=== PATIENT | male | born 1985 | race Caucasian/White ===

== ENCOUNTER 2020-04-24 10:08 | Emergency (ER) | payer SELFPAY ==
[2020-04-24 11:03] VITALS: BP 145/92; PULSE 78; RESP 17; TEMP 36.6; O2SAT 99; BMI 36.6
--- NOTE | 2020-04-24 11:16 | ED.GENADULT ---
HPI - General Adult General Chief complaint: General Medical Stated complaint: difficulty swallowing Time Seen by Provider: 04/24/20 11:07 Source: patient Mode of arrival: ambulatory Limitations: no limitations History of Present Illness HPI narrative: 34-year-old male previously healthy here with difficulty swallowing for greater than 9 months. The patient tells me that often times when he eats certain foods he feel like they get stuck. Sometimes he has to induce vomiting. Other times he is able to get it to pass with drinking lots of fluids. He tells me typically has difficulty with dry foods like Mcchicken sandwiches and chips. No difficulty with soft foods or liquids. No abdominal pain, nausea, vomiting. Onset (ago): month(s) Radiation: non-radiation Associated symptoms: denies other symptoms Related Data Allergies Allergy/AdvReac Type Severity Reaction Status Date / Time No Known Allergies Allergy Verified 04/24/20 11:06 [No Known Allergies*] Review of Systems Review of Systems: Yes all other systems are reviewed and are negative Constitutional: Constitutional: Reports no additional constitutional complaints, Denies body ache(s), Denies chills, Denies fever(s), Denies headache(s) and Denies weakness Eyes: Eyes: Reports no additional eye complaints and Denies change in vision ENT: Reports system reviewed and no additional complaints, except as documented, Reports dysphagia, Denies dizziness, Denies headache(s), Denies nasal congestion, Denies nasal discharge and Denies neck pain Cardiovascular: Cardiovascular: Reports no additional cardiovascular complaints, Denies chest pain, Denies leg edema and Denies dyspnea Respiratory: Respiratory: Reports no additional respiratory complaints, Denies cough and Denies dyspnea Gastrointestinal: Gastrointestinal: Reports no additional gastrointestinal complaints, Denies abdominal pain, Reports dysphagia, Denies diarrhea, Denies nausea and Denies vomiting Genitourinary: Genitourinary: Denies urinary incontinence Musculoskeletal: Musculoskeletal: Reports no additional musculoskeletal complaints, Denies back pain, Denies arthralgias, Denies joint swelling, Denies neck pain, Denies numbness and Denies tingling Integumentary/Breasts: Skin/Breast: Reports system reviewed and no additional complaints, except as docu and Denies rash Neurologic: Reports system reviewed and no additional complaints, except as documented, Denies Abnormal speech present, Denies dizziness, Denies headache(s), Denies numbness, Denies tingling and Denies weakness [facility] Past Medical History Attestation statement: The following information was validated with the patient. Source: old records reviewed and nursing notes reviewed Social History Social History Advance Directives: No Advance Directives Information Provided: No Physical Exam Vital Signs: Vital Signs: Last Vital Signs Temp 98 F 04/24/20 11:03 Pulse 78 04/24/20 11:03 Resp 17 04/24/20 11:03 BP 145/92 H 04/24/20 11:03 Pulse Ox 99 04/24/20 11:03 Body Mass Index 36.6 Const: General: cooperative, healthy appearing, comfortable and no acute distress Orientation/consciousness: patient oriented x3 Limitations: no limitations HENMT: Other: Tolerating secretions Head: Yes normal to inspection Ears: hearing grossly normal bilaterally General nose exam: Normal external nose present Face and sinus: Yes normal facial exam Mouth: Normal oral and palatal mucosa present Throat: Yes posterior oropharynx normal Eyes: General: appearance normal, both eyes and all related structures Pupils: Equal, round and reactive pupils present Neck: Neck: Yes normal visual inspection Chest: Chest palpation & inspection: normal inspection of the chest Resp: Effort & Inspection: normal respiratory effort Auscultation: clear to auscultation bilaterally Cardio: Rate: regular rate Rhythm: regular rhythm Peripheral pulses: Peripheral pulses 2+ throughout GI: Inspection: Yes normal to inspection Palpation (GI): Soft to palpation and nontender Auscultation: normal bowel sounds Back/Spine/Pelvis: Thoracic/Lumbar Spine: thoracic and lumbar spine normal to inspection Skin: General skin exam: no rashes or lesions noted Neuro: General: patient oriented x3, no focal motor deficits and normal sensation to monofilament Cranial nerves: Yes Equal, round and reactive pupils present Cognition (Neuro): normal cognition Speech: No Abnormal speech present Gait exam (Neuro): Normal gait present Motor exam (neuro): 5/5 motor strength present throughout Extrem: General: Yes normal to inspection Course Course Course Narrative: 34-year-old male here with feeling like food gets stuck for greater than 9 months. Happens with certain solid foods. No other associated symptoms. Exam is benign. Patient is drinking fluids in the room and tolerating his own secretions with no difficulty. No abdominal pain. May be esophageal stricture vs gerd vs anatomic abnormality. Discussed with patient he likely will need outpatient GI appointment and possible endoscopy. We discussed avoiding triggering foods. Reviewed worrisome signs and symptoms of when to return to the emergency department. Comfortable with discharge home. Discharge Plan Discharge Clinical Impression: Swallowing difficulty Qualifiers: Dysphagia type: esophageal phase Qualified Code(s): R13.10 - Dysphagia, unspecified Patient Disposition: Home, Self-Care Instructions: Dysphagia (ED) Additional Instructions: Call the party supply specialist as discussed for an appointment Eat soft foods and avoid trigger foods as discussed Referrals: Elmer Garcia MD [Physician] - 2 days Stand Alone Forms: Work/School Release Interventions: ED Discharge Assessment Last Done: 04/24/20 12:18 Discharge Date/Time: 04/24/20 11:30
== END 2020-04-24 11:30 | disposition home or self-care (01) ==
PROVIDERS: Emergency Provider Emergency Medicine Emergency Medical Services
DX: R13.10 Dysphagia, unspecified (principal)
CPT/HCPCS: 99283

== ENCOUNTER → 2020-05-02 08:06 | Outpatient (BNVA) | payer BC, SELFPAY | PROVIDERS: Visit Provider Physician Assistant | DX: Z76.89 Persons encountering health services in other specified circumstances (principal) ==

== ENCOUNTER 2020-06-28 07:58 | Day surgery (SDC) | payer BC, SELFPAY ==
--- NOTE | 2020-06-27 08:57 | HO.ANESPROP2 ---
Documented by User: Odilia Medrano 06/27/20 08:58 HPI - Anesthesia Eval Consult details Narrative: 34yo M for Upper Endoscopy with Balloon Dilitation PMFSH Active Problems Active Problems: All Active Problems (Updated 05/02/20 @ 08:39 by Nia Knapp PA-C) Overweight (Acute) Dysphagia (Acute) Past Medical History Medical History Dysphagia Overweight Family History Family History Father No problems noted. Social History Social History Household Members: Family Alcohol intake: never Smoking Status: Never smoker Use of substances other than those prescribed or required for medical reasons: No Advance Directives: No Advance Directives Information Provided: No Current occupational status: employed Current occupation: IT Meds Allergies Allergy/AdvReac Type Severity Reaction Status Date / Time No Known Allergies Allergy Verified 06/28/20 08:12 [No Known Allergies*] Home Medications Medication Instructions Recorded Confirmed Last Taken Type famotidine 20 mg tablet 20 mg PO BEDTIME 05/02/20 06/22/20 Unknown History omega-3 fatty acids 1,000 mg 1,000 mg PO DAILY 05/02/20 06/22/20 Unknown History capsule Exam Exam Date and Time: June 27, [id number] Assessment and Plan Assessment Anesthesia Assessment: Chart Reviewed Documented by User: Wendy Brown 06/28/20 08:35 PMFSH Past Medical History Medical History Dysphagia Overweight Family History Family History Father No problems noted. Social History Social History Household Members: Family Alcohol intake: never Smoking Status: Never smoker Use of substances other than those prescribed or required for medical reasons: No Advance Directives: No Advance Directives Information Provided: No Current occupational status: employed Current occupation: IT Meds Allergies Allergy/AdvReac Type Severity Reaction Status Date / Time No Known Allergies Allergy Verified 06/28/20 08:12 [No Known Allergies*] Home Medications Medication Instructions Recorded Confirmed Last Taken Type famotidine 20 mg tablet 20 mg PO BEDTIME 05/02/20 06/22/20 Unknown History omega-3 fatty acids 1,000 mg 1,000 mg PO DAILY 05/02/20 06/22/20 Unknown History capsule Exam Airway Mallampati Class: II TM Dist: >3cm Neck ROM: Full Loose/Missing/Broken Teeth: No Heart: RRR Lungs: CTA Assessment and Plan Assessment Anesthesia Assessment: Anesthesia Plan Discussed and Chart Reviewed Final Anesthetic Review NPO: Yes ASA Class: II Final Preanesthetic Review: Meds/Allgs Chart Reviewed, Consent Obtained/Reviewed and Anes Risks/Benef Reviewed Patient Risk: Low Procedure Risk: Intermediate Anesthetic Plan Anesthetic Plan: MAC: Disposition: Standard PACU
[2020-06-28 08:17] VITALS: BP 134/77; PULSE 91; RESP 18; TEMP 36.1; O2SAT 98; BMI 36.6
[2020-06-28] MEDS: Lactated Ringers 1,000 ML 100 ML IVCONT (08:38)
--- NOTE | 2020-06-28 09:06 | MHC.SHP ---
Pre-Procedural Eval Section B Chief Complaint: Dsyphagia Relevant Family History (Specify if Yes): No Relevant Social History: None Present Medications: see Short Stay Collaborative assessment Medical History: Significant History (Dysphagia Overweight) History of Previous Operations: No relevant previous surgery Allergies: Allergies Allergy/AdvReac Type Severity Reaction Status Date / Time No Known Allergies Allergy Verified 06/28/20 08:12 [No Known Allergies*] Review of Systems Sugical H&P ROS: Negative: Constitution, Cardiovascular, Respiratory, Neurological, Psychiatric, Hem-Onc, Allergic/Immunologic, Gastrointestinal, Genitourinary, Musculoskeletal, Integumentary, Endocrine and Eyes/Ears/Nose/Throat Exam Surgical H&P Exam: Normal: HEENT, Normal: Heart, Normal: Lungs, Normal: Extremities, Normal: Abdomen, Normal: Skin and Normal: Neurological Plan Diagnosis/Plan: Unchanged I have reviewed the history and physical and performed a pertinent physical examination on my patient. No changes have occurred unless specified.
--- NOTE | 2020-06-28 09:50 | PM.OP ---
Brief Operative Note Date of Service: 06/28/20 Pre-op diagnosis: dysphagia Post-op diagnosis: same Procedure: see op note Surgeon: Walter Connolly MD Anesthesia: MAC Estimated blood loss (mL): 0 Condition: stable Disposition: PACU
--- NOTE | 2020-06-28 09:50 | W.PM.OPN ---
Operative Note Operative Note Date of Service: 06/28/20 Narrative: Procedure Description: EGD FLEXIBLE TRANSORAL UPPER GASTROINTESTINAL ENDOSCOPY UPPER ENDOSCOPY Consent: Indications for the procedure and potential complications of bleeding, perforation, reaction to medications and missed diagnosis were discussed with the patient and informed consent was obtained. Instrument: Olympus GIF H 190 J mid size upper endoscope Monitoring: Vital signs and clinical assessment, continuous EKG monitoring, Pulse oximetry, Carbon Dioxide monitoring and blood pressure monitoring were done throughout the procedure. Procedure: The patient was placed in the left lateral decubitis position and pre-procedure medications were administered and a bite block was placed. The endoscope was inserted into the mouth and advanced under direct vision to the third part of duodenum. A careful inspection was made as the upper endoscope was withdrawn including a retroflexed examination of the proximal stomach; Findings and interventions are described below. Findings: Larynx:normal Esophagus: GE junction at 36 cm, diaphragm hiatus at 38 cm, schatzki ring noted with mild esophagitis. step chavez balloon dilation done from 12-14 mm with tear noted in the ring. UES also dilated to 13 mm, no tear noted. Bx taken from GEJ, distal esophagus and proximal esophagus in seperate jars. There is a 2 cm sliding hiatal hernia. There was furrowing of the esophus noted. Stomach: Patchy gastric erythema. Biopsies were obtained. Grade 2 flap valve on retroflexed examination of the cardia. Duodenum: Normal bulb and descending duodenum, bx taken Intervention: Biopsies as noted above with balloon dilation Impression/Findings: schatzki ring hiatal hernia possible EoE gastritis PLAN: await bx cont with current anti acid treatment, will prob bring back in 4-8 weeks for further dilation, will d/w patient if eoE pos then will increase PPI can have regular diet today
[2020-06-28 09:57] VITALS: BP 139/100; PULSE 100; RESP 18; TEMP 37.4; O2SAT 99
[2020-06-28 10:12] VITALS: BP 115/65; PULSE 97; RESP 20; O2SAT 97
[2020-06-28] MEDS: Acetaminophen 325 MG TABLET 650 MG PO (10:26)
[2020-06-28 10:27] VITALS: BP 126/86; PULSE 90; RESP 20; TEMP 37.4; O2SAT 97
== END 2020-06-28 11:01 | disposition home or self-care (01) ==
PROVIDERS: Visit Provider Internal Medicine Gastroenterology
PROC: (CPT 43249; principal; 2020-06-28 09:20)
DX: K22.2 Esophageal obstruction (principal); K29.80 Duodenitis without bleeding; K20.80 Other esophagitis without bleeding; K29.50 Unspecified chronic gastritis without bleeding; K44.9 Diaphragmatic hernia without obstruction or gangrene; Z79.899 Other long term (current) drug therapy
CPT/HCPCS: 43249; 88305; 88342; C1726